=== PATIENT | male | born 1990 | race Two or more races ===

== ENCOUNTER 2025-04-24 21:39 | Emergency (ER) | payer OTHER, SELFPAY ==
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
[2025-04-24 21:43] VITALS: BP 157/93; PULSE 115; RESP 16; TEMP 36.3; O2SAT 98
[2025-04-25 02:41] VITALS: BP 126/82; PULSE 89; RESP 13; O2SAT 96
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
[2025-04-25] MEDS: IBUPROFEN 400 MG TABLET 800 MG PO (03:36)
[2025-04-25 04:45] VITALS: BP 121/84; PULSE 83; RESP 15; O2SAT 98
--- NOTE | 2025-04-25 05:12 | PC.NURSE ---
pt seen walking out of ED with steady gait. flavorings compounder made aware
== END 2025-04-25 05:13 | disposition left against medical advice (07) ==
PROVIDERS: Emergency Provider Student in an Organized Health Care Education/Training Program
DX: S13.4XXA Sprain of ligaments of cervical spine, initial encounter (principal); V49.40XA Driver injured in collision with unspecified motor vehicles in traffic accident, initial encounter
CPT/HCPCS: 70450; 71045; 72100; 72125; 73000; 73030; 99284; A9270

== ENCOUNTER 2025-04-25 12:00 | Emergency (ER) | payer OTHER, SELFPAY ==
[2025-04-25 12:02] VITALS: BP 155/93; PULSE 103; RESP 18; TEMP 36.4; O2SAT 100
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
[2025-04-25 13:38] VITALS: BP 136/92; PULSE 87; RESP 16; TEMP 36.7; O2SAT 95
== END 2025-04-25 13:43 | disposition home or self-care (01) ==
PROVIDERS: Emergency Provider Emergency Medicine
DX: S16.1XXA Strain of muscle, fascia and tendon at neck level, initial encounter (principal); V43.52XA Car driver injured in collision with other type car in traffic accident, initial encounter
CPT/HCPCS: 99283